=== PATIENT | male | born 1960 | race Caucasian/White ===

== ENCOUNTER 2017-02-16 12:00 | Outpatient (CLI) | END 2017-02-16 12:01 | LOC: AMBL 12:00 | PROVIDERS: ATTEND Internal Medicine | DX: R06.02 Shortness of breath (principal); R05 Cough; J44.9 Chronic obstructive pulmonary disease, unspecified; I50.9 Heart failure, unspecified; B20 Human immunodeficiency virus [HIV] disease; R53.1 Weakness; C14.0 Malignant neoplasm of pharynx, unspecified ==

== ENCOUNTER 2017-05-06 07:47 | Outpatient (CLI) | END 2017-05-06 07:48 | LOC: AMBL 07:47 | PROVIDERS: ATTEND Internal Medicine | DX: R06.02 Shortness of breath (principal); R05 Cough; R00.0 Tachycardia, unspecified; R53.83 Other fatigue; Z99.81 Dependence on supplemental oxygen ==

== ENCOUNTER 2017-07-06 21:27 | Outpatient (CLI) | END 2017-07-06 21:28 | disposition short-term general hospital (02) | LOC: AMBL 21:27 | PROVIDERS: ATTEND Family Medicine | DX: R06.9 Unspecified abnormalities of breathing (principal); R40.4 Transient alteration of awareness; R09.02 Hypoxemia; R40.2421 Glasgow coma scale score 9-12, in the field [EMT or ambulance]; R00.0 Tachycardia, unspecified; Z85.9 Personal history of malignant neoplasm, unspecified ==